=== PATIENT | female | born 1990 | race Caucasian/White ===

== ENCOUNTER 2019-05-29 23:50 | Emergency (ER) | payer SELFPAY ==
[~2019-05-29] VITALS: Ht 165.1 cm; Wt 93.9 kg
[2019-05-29 23:55] VITALS: BP 159/97
--- NOTE | 2019-05-30 00:06 | NUR ---
PATIENT PRESENTS TO ED WITH C/O COUGHING. PATIENT STATES IT STARTED THIS MORNING W/ CLEAR MUCOUS PRODUCTION. DENIES N/V, +FEVER AND CHILLS AT HOME. STATES SHE HAS BEEN AROUND FAMILY THAT IS ALSO SICK AND HAS BEEN DX W/ PNA. LUNG SOUND CLEAR BL. SKIN IS PINK/WARM/DRY; AAOX4 WITH EVEN AND STEADY GAIT; HR EVEN AND REGULAR; PT DENIES CP, OR SOB; PATIENT STATES PAIN OF 0/10 AT THIS TIME; VSS; PATIENT POSITIONED FOR COMFORT; HOB ELEVATED; BEDRAILS UP X2; BED DOWN. ER MD MADE AWARE OF PT STATUS.
--- NOTE | 2019-05-30 00:06 | NUR ---
PT AMBULATED W/ STEADY GAIT TO BED 2. PT PROVIDED URINE SAMPLE, URINE IN RED LAB BIN.
[2019-05-30] MEDS ORDERED: IBUPROFEN 600 MG TAB PO ONE (00:10)
--- NOTE | 2019-05-30 00:46 | NUR ---
OIL SEAL ASSEMBLER AT BEDSIDE.
[2019-05-30 01:10] VITALS: BP 131/80
--- NOTE | 2019-05-30 01:10 | NUR ---
Patient discharged with v/s stable. Written and verbal after care instructions given and explained. Patient alert, oriented and verbalized understanding of instructions. Ambulatory with steady gait. All questions addressed prior to discharge. ID band removed. Patient advised to follow up with PMD. Rx of IBUPROFEN 600MG, AND TESSALON PERLES 100MG given. Patient educated on indication of medication including possible reaction and side effects. Opportunity to ask questions provided and answered.
== END 2019-05-30 01:10 | disposition home or self-care (01) ==
LOC: MED 23:50
DX: J06.9 Acute upper respiratory infection, unspecified (principal)
CPT/HCPCS: 71045; 87081; 87804; 99284; Q0092

== ENCOUNTER 2019-05-30 21:31 | Emergency (ER) | payer OTHER ==
[~2019-05-30] VITALS: Ht 157.5 cm; Wt 93.0 kg
[2019-05-30 21:43] VITALS: BP 140/98
--- NOTE | 2019-05-30 21:48 | NUR ---
PT TAKEN TO BED 5
[2019-05-30 21:53] VITALS: BP 140/98
--- NOTE | 2019-05-30 21:53 | NUR ---
28 Y/O F PRESENTED TO ED WITH C/O RASH. PER PT "I WAS PRESCRIBED BENZONATATE YESTERDAY AND TOOK IT TODAY. AFTER I TOOK IT THEN I GOT THIS RASH." ECCMYMOSIS NOTED TO R ARM AND SMALL CIRCULAR RED DOTS NOTED TO L ARM. FACIAL REDNESS NTOED. O2 SATURATION MAINTAINED AT 97% ON ROOM AIR. FAMILY AT BEDSIDE. ERMD NOTIFIED. WILL CONTINUE TO MONITOR.
--- NOTE | 2019-05-30 22:06 | NUR ---
Dr. Ng examining patient.
[2019-05-30] MEDS ORDERED: predniSONE 20 MG TAB PO ONE (22:10)
--- NOTE | 2019-05-30 22:24 | NUR ---
Patient discharged with v/s stable. Written and verbal after care instructions given and explained. Patient alert, oriented and verbalized understanding of instructions. Ambulatory with steady gait. All questions addressed prior to discharge. ID band removed. Patient advised to follow up with PMD. Rx of benadryl and prednisone given. Patient educated on indication of medication including possible reaction and side effects. Opportunity to ask questions provided and answered.
== END 2019-05-30 22:24 | disposition home or self-care (01) ==
LOC: MED 21:31
DX: T48.3X5A Adverse effect of antitussives, initial encounter (principal); Z88.8 Allergy status to other drugs, medicaments and biological substances; Y92.89 Other specified places as the place of occurrence of the external cause
CPT/HCPCS: 99283; J7512; Q0163

== ENCOUNTER 2020-01-16 21:02 | Emergency (ER) | payer OTHER ==
[~2020-01-16] VITALS: Ht 165.1 cm; Wt 98.2 kg
[2020-01-16 21:10] VITALS: BP 138/92
--- NOTE | 2020-01-16 21:12 | NUR ---
TO LOBBY A/W BED AMBULATORY
--- NOTE | 2020-01-16 22:32 | NUR ---
pt ambulated to bed 04
--- NOTE | 2020-01-16 22:36 | NUR ---
29 YEAR OLD FEMALE COMPLAINS OF RASH X 1 WEEK ON FOREHEAD, CHEEKS, AND NOSE. PATIENT STATES SHE TAKES BENADRYL BUT IT DID NOT WORK. PATIENT AOX4, BREATHING EVEN AND UNLABORED, SKIN WARM AND DRY. AT BEDSIDE. BED IN LOWEST POSITION, LOCKED, BED RAIL UPX1. PMH - DENIES ALLERGIES - NKA
--- NOTE | 2020-01-16 22:43 | NUR ---
PATIENT ALERT AND AWAKE, BREATHING EVEN AND UNLABORED.
[2020-01-16] MEDS ORDERED: diphenhydrAMINE 50 MG CAP PO ONE (22:45)
[2020-01-16] MEDS ORDERED: predniSONE 20 MG TAB PO ONE (22:45)
[2020-01-16] MEDS ORDERED: FAMOTIDINE 20 MG TAB PO ONE (22:45)
[2020-01-16 23:20] VITALS: BP 138/92
--- NOTE | 2020-01-16 23:20 | NUR ---
Patient discharged with v/s stable. Written and verbal after care instructions abou contact dermatitis given and explained. Patient alert, oriented and verbalized understanding of instructions. Ambulatory with steady gait. All questions addressed prior to discharge. ID band removed. Patient advised to follow up with PMD. Rx of prednisone, benadryl, and loratadine given. Patient educated on indication of medication including possible reaction and side effects. Opportunity to ask questions provided and answered.
== END 2020-01-16 23:20 | disposition home or self-care (01) ==
LOC: MED 21:02
DX: R21 Rash and other nonspecific skin eruption (principal); Z88.8 Allergy status to other drugs, medicaments and biological substances
CPT/HCPCS: 99284; J7512; Q0163

== ENCOUNTER 2023-09-23 16:47 | Inpatient (IN) | payer OTHER ==
[~2023-09-23] VITALS: Ht 165.1 cm; Wt 87.5 kg
[2023-09-23 16:57] VITALS: BP 151/98; PULSE 83; RESP 20; TEMP 98.1; O2SAT 96
[2023-09-23] MEDS ORDERED: KETOROLAC 60 MG/2 ML VIAL IM ONE (19:30)
[2023-09-23 19:44] LABS: BASOPHILS # (AUTO) 0.1 K/uL (0.00-0.22); BASOPHILS % (AUTO) 0.9 % (0.0-2.0); EOSINOPHILS # (AUTO) 0.2 K/uL (0-0.4); EOSINOPHILS % (AUTO) 2.9 % (0.0-4.0); HEMATOCRIT 38.9 % (36-48); HEMOGLOBIN 12.7 g/dL (12.0-16.0); LYMPHOCYTES # (AUTO) 1.5 K/uL (2.5-16.5); LYMPHOCYTES % (AUTO) 20.4 % (20.5-51.1); MEAN CORPUSCULAR HEMOGLOBIN 25 pg (27-31); MEAN CORPUSCULAR HGB CONC 33 g/dL (33-37); MONOCYTES # (AUTO) 0.5 K/uL (0.8-1.0); MONOCYTES % (AUTO) 7.3 % (1.7-9.3); NEUTROPHILS # (AUTO) 4.9 K/uL (1.8-7.7); NEUTROPHILS % (AUTO) 68.5 % (42.2-75.2); PLATELET COUNT (AUTO) 243 K/uL (140-450); RED BLOOD CELL COUNT(AUTO) 5.12 MIL/uL (4.20-5.40); WHITE BLOOD COUNT (AUTO) 7.2 K/uL (4.8-10.8)
[2023-09-23 20:07] LABS: ALBUMIN 3.7 g/dL (3.4-5.0); ANION GAP 11.5 (8-16); CARBON DIOXIDE 32.5 mmol/L (21-32); CREATININE 0.9 mg/dL (0.6-1.3); TOTAL BILIRUBIN 2.1 mg/dL (0.0-1.0)
[2023-09-23 21:02] LABS: BILIRUBIN,URINE NEGATIVE (NEGATIVE); BLOOD, URINE NEGATIVE (NEGATIVE); COLOR,URINE YELLOW (YELLOW); LEUKOCYTE ESTERASE ,URINE TRACE (NEGATIVE); NITRITE, URINE NEGATIVE (NEGATIVE); PROTEIN,URINE NEGATIVE (NEGATIVE); UGLUCOSE NEGATIVE (NEGATIVE)
[2023-09-23] MEDS ORDERED: ONDANSETRON 4 MG/2 ML VIAL IVP ONE (21:05)
[2023-09-23] MEDS ORDERED: KETOROLAC 30 MG/ML VIAL IVP ONE (21:05)
[2023-09-23 21:13] VITALS: PULSE 74
[2023-09-23 21:18] LABS: APPEARANCE,URINE SLIGHTLY CLOUDY (CLEAR)
[2023-09-23 21:19] LABS: BACTERIA,URINE FEW /HPF (None Seen); RBC,URINE 0-5 /HPF (0-5)
[2023-09-23 21:20] LABS: SQUAMOUS EPITHELIAL CELL,UR 4-10 (MOD) /LPF (0-3 (FEW))
[2023-09-23] MEDS ORDERED: cefTRIAXone 1,000 MG VIAL ONE (22:03)
[2023-09-23] MEDS ORDERED: HYDROcodone/APAP 7.5/325 MG 1 TAB PO PRN (22:10)
[2023-09-23] MEDS ORDERED: DOCUSATE SODIUM 100 MG GELCAP PO PRN (22:10)
[2023-09-23] MEDS ORDERED: ACETAMINOPHEN 325 MG TAB PO PRN (22:10)
[2023-09-23] MEDS ORDERED: POTASSIUM CHLORIDE 10 MEQ TABER PO PRN (22:10)
[2023-09-23] MEDS ORDERED: guaiFENesin DM 200/20 MG-10 ML 10 ML UDC PO PRN (22:10)
[2023-09-23] MEDS ORDERED: ZOLPIDEM 5 MG TAB PO PRN (22:10)
[2023-09-23] MEDS ORDERED: ONDANSETRON 4 MG/2 ML VIAL IM/IVP PRN (22:10)
[2023-09-23] MEDS ORDERED: NACL 0.9% 1,000 ML IV SCH (22:10)
[2023-09-23 23:10] VITALS: PULSE 70; RESP 18; O2SAT 96
[2023-09-23 23:56] VITALS: PULSE 71
[2023-09-24 04:00] VITALS: BP 136/83; PULSE 68; PULSE 69; RESP 17; TEMP 98.3; O2SAT 96
[2023-09-24 05:32] LABS: BASOPHILS # (AUTO) 0.1 K/uL (0.00-0.22); BASOPHILS % (AUTO) 1.1 % (0.0-2.0); EOSINOPHILS # (AUTO) 0.3 K/uL (0-0.4); EOSINOPHILS % (AUTO) 5.2 % (0.0-4.0); HEMATOCRIT 37.1 % (36-48); LYMPHOCYTES # (AUTO) 1.2 K/uL (2.5-16.5); LYMPHOCYTES % (AUTO) 22.2 % (20.5-51.1); MEAN CORPUSCULAR HEMOGLOBIN 25 pg (27-31); MEAN CORPUSCULAR HGB CONC 32 g/dL (33-37); MEAN CORPUSCULAR VOLUME 76.2 fL (80-94); MONOCYTES # (AUTO) 0.5 K/uL (0.8-1.0); MONOCYTES % (AUTO) 8.3 % (1.7-9.3); NEUTROPHILS # (AUTO) 3.5 K/uL (1.8-7.7); NEUTROPHILS % (AUTO) 63.2 % (42.2-75.2); PLATELET COUNT (AUTO) 236 K/uL (140-450); RED BLOOD CELL COUNT(AUTO) 4.87 MIL/uL (4.20-5.40); RED CELL DISTRIBUTION WIDTH 16.9 % (11.6-13.7); WHITE BLOOD COUNT (AUTO) 5.6 K/uL (4.8-10.8)
[2023-09-24 05:49] LABS: ALBUMIN 3.2 g/dL (3.4-5.0); ANION GAP 12.5 (8-16); CALCIUM 8.7 mg/dL (8.5-10.1); CARBON DIOXIDE 28.2 mmol/L (21-32); CREATININE 0.7 mg/dL (0.6-1.3); POTASSIUM 3.7 mmol/L (3.5-5.1); TOTAL BILIRUBIN 2.8 mg/dL (0.0-1.0); TOTAL PROTEIN, SERUM 7.2 g/dL (6.4-8.2)
[2023-09-24 08:00] VITALS: BP 146/89; PULSE 65; PULSE 69; RESP 18; TEMP 98; O2SAT 96
[2023-09-24] MEDS: PANTOPRAZOLE 40 MG TABEC PO SCH (09:26)
[2023-09-24] MEDS: DEXT 5% /NACL 0.9% 1,000 ML IV SCH ×2 (09:28→15:55)
[2023-09-24 16:00] VITALS: BP 140/86; PULSE 72; RESP 18; TEMP 98.5; O2SAT 97
[2023-09-24 20:00] VITALS: BP 136/88; PULSE 65; PULSE 72; RESP 18; RESP 19; TEMP 97.2; O2SAT 96; O2SAT 97
[2023-09-25 04:00] VITALS: BP 142/90; PULSE 67; RESP 18; TEMP 97; O2SAT 97
[2023-09-25] MEDS: DEXT 5% /NACL 0.9% 1,000 ML IV SCH ×4 (04:22→19:17)
[2023-09-25 06:56] LABS: BASOPHILS # (AUTO) 0.1 K/uL (0.00-0.22); BASOPHILS % (AUTO) 0.9 % (0.0-2.0); EOSINOPHILS # (AUTO) 0.3 K/uL (0-0.4); EOSINOPHILS % (AUTO) 4.6 % (0.0-4.0); HEMATOCRIT 37.9 % (36-48); HEMOGLOBIN 12.2 g/dL (12.0-16.0); LYMPHOCYTES # (AUTO) 1.2 K/uL (2.5-16.5); LYMPHOCYTES % (AUTO) 20.4 % (20.5-51.1); MEAN CORPUSCULAR HEMOGLOBIN 25 pg (27-31); MEAN CORPUSCULAR HGB CONC 32 g/dL (33-37); MEAN CORPUSCULAR VOLUME 76.5 fL (80-94); MONOCYTES # (AUTO) 0.4 K/uL (0.8-1.0); MONOCYTES % (AUTO) 6.5 % (1.7-9.3); NEUTROPHILS # (AUTO) 3.8 K/uL (1.8-7.7); NEUTROPHILS % (AUTO) 67.6 % (42.2-75.2); PLATELET COUNT (AUTO) 222 K/uL (140-450); RED BLOOD CELL COUNT(AUTO) 4.95 MIL/uL (4.20-5.40); RED CELL DISTRIBUTION WIDTH 17.3 % (11.6-13.7); WHITE BLOOD COUNT (AUTO) 5.7 K/uL (4.8-10.8)
[2023-09-25 07:42] LABS: ANION GAP 11.8 (8-16); CALCIUM 8.7 mg/dL (8.5-10.1); CREATININE 0.7 mg/dL (0.6-1.3); POTASSIUM 3.8 mmol/L (3.5-5.1); TOTAL PROTEIN, SERUM 6.8 g/dL (6.4-8.2)
[2023-09-25 07:48] LABS: INR 1.04 (0.8-1.2); PROTHROMBIN TIME 10.9 secs (10.8-13.4)
[2023-09-25 08:00] VITALS: BP 148/88; PULSE 74; RESP 18; TEMP 98.1; O2SAT 96; O2SAT 99
[2023-09-25] MEDS: PANTOPRAZOLE 40 MG TABEC PO SCH (09:22)
[2023-09-25] MEDS ORDERED: HYDROmorphone 1 MG/ML AMP IVP PRN (11:50)
[2023-09-25] MEDS ORDERED: LIDOCAINE/EPI MPF 1%1:200000 30 ML VIAL INJ ONE (12:20)
[2023-09-25] MEDS ORDERED: BUPIVACAINE-MPF 0.25% 30 ML VIAL INJ ONE (12:20)
[2023-09-25] MEDS ORDERED: ceFAZolin 2,000 MG VIAL ONE (13:08)
[2023-09-25 16:00] VITALS: BP 150/92; PULSE 71; RESP 18; TEMP 97.6; O2SAT 98
[2023-09-25 20:00] VITALS: BP 156/92; PULSE 88; RESP 16; TEMP 97.3; O2SAT 99
[2023-09-26 04:00] VITALS: BP 133/83; PULSE 72; RESP 16; TEMP 97; O2SAT 97
[2023-09-26 07:02] LABS: BASOPHILS % (AUTO) 0.5 % (0.0-2.0); EOSINOPHILS # (AUTO) 0.2 K/uL (0-0.4); EOSINOPHILS % (AUTO) 2.8 % (0.0-4.0); HEMATOCRIT 37.4 % (36-48); LYMPHOCYTES # (AUTO) 1.2 K/uL (2.5-16.5); MEAN CORPUSCULAR HEMOGLOBIN 25 pg (27-31); MEAN CORPUSCULAR HGB CONC 32 g/dL (33-37); MEAN CORPUSCULAR VOLUME 76.6 fL (80-94); MONOCYTES # (AUTO) 0.5 K/uL (0.8-1.0); NEUTROPHILS % (AUTO) 72.7 % (42.2-75.2); PLATELET COUNT (AUTO) 219 K/uL (140-450); RED BLOOD CELL COUNT(AUTO) 4.88 MIL/uL (4.20-5.40); RED CELL DISTRIBUTION WIDTH 16.9 % (11.6-13.7); WHITE BLOOD COUNT (AUTO) 6.9 K/uL (4.8-10.8)
[2023-09-26] MEDS ORDERED: LIDOCAINE/EPI MPF 1%1:200000 30 ML VIAL INJ ONE (07:08)
[2023-09-26] MEDS ORDERED: BUPIVACAINE-MPF 0.25% 30 ML VIAL INJ ONE (07:08)
[2023-09-26] MEDS ORDERED: ceFAZolin 2,000 MG VIAL ONE (07:09)
[2023-09-26 07:14] LABS: ANION GAP 10.1 (8-16); CALCIUM 8.5 mg/dL (8.5-10.1); CARBON DIOXIDE 29.6 mmol/L (21-32); CREATININE 0.7 mg/dL (0.6-1.3); POTASSIUM 3.7 mmol/L (3.5-5.1); TOTAL BILIRUBIN 0.7 mg/dL (0.0-1.0); TOTAL PROTEIN, SERUM 6.9 g/dL (6.4-8.2)
[2023-09-26] MEDS ORDERED: MIDAZOLAM IV ONE (07:15)
[2023-09-26] MEDS ORDERED: DESFLURANE 240 ML BTL INH ONE (07:15)
[2023-09-26] MEDS ORDERED: ROCURONIUM 50 MG/5 ML VIAL IV ONE ×2 (07:15→07:23)
[2023-09-26] MEDS ORDERED: ceFAZolin 1,000 MG VIAL ONE (07:15)
[2023-09-26] MEDS ORDERED: SUCCINYLCHOLINE CHLORIDE 200 MG/10 ML VIAL IVP ONE ×2 (07:15→07:22)
[2023-09-26] MEDS ORDERED: fentaNYL citrate 0.05 MG/ML - 50mL vial IV ONE (07:15)
[2023-09-26] MEDS ORDERED: PROPOFOL 200 MG/20 ML VIAL IV ONE ×2 (07:15→07:22)
[2023-09-26] MEDS ORDERED: MIDAZOLAM 2 MG/2 ML VIAL ONE (07:20)
[2023-09-26] MEDS ORDERED: fentaNYL citrate 0.05 MG/ML VIAL ONE ×2 (07:21→08:05)
[2023-09-26] MEDS ORDERED: ONDANSETRON 4 MG/2 ML VIAL ONE (07:22)
[2023-09-26] MEDS ORDERED: DEXAMETHASONE 4 MG/ML VIAL ONE (07:23)
[2023-09-26] MEDS ORDERED: SUGAMMADEX SODIUM 200 MG/2 ML VIAL IV ONE (08:07)
[2023-09-26 08:18] VITALS: PULSE 78; RESP 19; O2SAT 97
[2023-09-26] MEDS ORDERED: HYDROcodone/APAP 5/325 MG 1 TAB TAB PO PRN (08:25)
[2023-09-26] MEDS ORDERED: HYDROmorphone 1 MG/ML AMP IVP PRN (08:25)
[2023-09-26] MEDS ORDERED: ALBUTEROL HFA MDI 90 MCG/ACTUATION 8 GM INH ONE (08:29)
[2023-09-26] MEDS ORDERED: HYDROmorphone PFS 2 MG/ML SYR ONE (08:38)
[2023-09-26] MEDS: HYDROmorphone 1 MG/ML AMP IVP PRN ×4 (08:40→09:10)
[2023-09-26] MEDS ORDERED: ONDANSETRON 4 MG/2 ML VIAL IVP PRN (08:40)
[2023-09-26] MEDS ORDERED: MEPERIDINE 25 MG/ML SYR IVP PRN (08:40)
[2023-09-26] MEDS ORDERED: diphenhydrAMINE 50 MG/ML VIAL IVP PRN (08:40)
[2023-09-26] MEDS ORDERED: NACL 0.9% 1,000 ML IV SCH (08:40)
[2023-09-26] MEDS ORDERED: LACTATED RINGERS 1,000 ML IV SCH (08:40)
[2023-09-26] MEDS: PANTOPRAZOLE 40 MG TABEC PO SCH (09:00)
[2023-09-26 14:07] VITALS: BP 126/76; PULSE 60; RESP 20; TEMP 97.1
== END 2023-09-26 15:01 | disposition home or self-care (01) | DRG 418 ==
LOC: MED 16:47 → MTU 22:13
PROVIDERS: ADMIT Student in an Organized Health Care Education/Training Program; ATTEND Student in an Organized Health Care Education/Training Program
PROC: BF131ZZ Fluoroscopy of Gallbladder and Bile Ducts using Low Osmolar Contrast (ICD-10-PCS; 2023-09-26)
PROC: 0FT44ZZ Resection of Gallbladder, Percutaneous Endoscopic Approach (ICD-10-PCS; principal; 2023-09-26 07:00)
DX: K80.64 Calculus of gallbladder and bile duct with chronic cholecystitis without obstruction (principal); E44.1 Mild protein-calorie malnutrition; K83.09 Other cholangitis; R74.01 Elevation of levels of liver transaminase levels; Z88.8 Allergy status to other drugs, medicaments and biological substances; Z79.899 Other long term (current) drug therapy; Z90.49 Acquired absence of other specified parts of digestive tract; Z82.49 Family history of ischemic heart disease and other diseases of the circulatory system; Z68.32 Body mass index [BMI] 32.0-32.9, adult
CPT/HCPCS: 36415; 71045; 76705; 80053; 81001; 81025; 82374; 83690; 84702; 85025; 85610; 85730; 87040; 87081; 87086; 88304; 93005; 96365; 96375; 99285; J0330; J0690; J0696; J1100; J1170; J1885; J2001; J2175; J2250; J2405; J2704; J3010; J3490; J3535; J7120